=== PATIENT | female | born 1980 | race African-American/Black ===

== ENCOUNTER 2022-10-04 15:20 | Outpatient (REF) | payer OTHER, SELFPAY ==
[2022-10-13 09:44] LABS: HPV mRNA E6/E7 rflx Not Detected (Not Detected)
== END 2022-10-04 15:21 | disposition home or self-care (01) ==
LOC: HO.LNP 15:20
PROVIDERS: PCP Nurse Practitioner Family; Visit Provider Obstetrics & Gynecology
DX: Z01.419 Encounter for gynecological examination (general) (routine) without abnormal findings (principal)
CPT/HCPCS: 87624; 88142

== ENCOUNTER 2022-10-04 15:20 | Outpatient (AMB) | payer OTHER, SELFPAY ==
--- NOTE | 2022-10-04 15:28 | A.OFFVIS_ITS ---
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 No complaints. 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 Sexually active: Yes Sexual orientation: Straight/Heterosexual Gender identity: Female Female Reproductive History Menstrual Date of last menstrual period: 09/17/22 Total pregnancies: 4 Full term: 3 Number of Living Children: 3 Ab induced: 1 Review of Systems Const All systems reviewed & are unremarkable except as noted in HPI and below Card Reports as per HPI Resp Reports as per HPI GI Reports as per HPI and Reports no additional complaints Reports as per HPI Physical Exam Vital Signs: Last Vital Signs BP 110/70 10/04/22 15:30 BMI result Body Mass Index 34.9 Const General: cooperative, healthy appearing and comfortable Chest Chest palpation & inspection: normal inspection of the chest and normal palpation of entire chest wall Breast/axilla inspection: normal inspection of the breasts and normal inspection of the axillae Breast/axilla palpation: normal palpation of the breasts, normal palpation of the axillae and no axillary lymphadenopathy Resp Effort & Inspection: normal respiratory effort Auscultation: clear to auscultation bilaterally Percussion: percussion normal Cardio Palpation: normal PMI Rate: regular rate Rhythm: regular rhythm Heart sounds: no murmurs and no rubs Peripheral pulses: Peripheral pulses 2+ throughout GI Inspection: Yes normal to inspection Palpation (GI): Soft to palpation, nontender, no guarding, not rigid and No hepatosplenomegaly present Percussion: Yes normal to percussion Auscultation: normal bowel sounds Rectal Exam - Female: deferred General: Yes bladder normal to palpation External Female Exam: No lesion Speculum Exam - Vagina: normal appearance of the vagina, normal palpation, normal vaginal discharge and not erythematous Speculum Exam - Cervix: normal appearance of the cervix and normal palpation Bimanual exam- vagina & uterus: normal bimanual exam, normal palpation, uterine size normal, bladder normal to palpation, consistency normal and normal palpation Bimanual Exam- Adnexa, other: normal adnexae, no masses and no tenderness Assessment & Plan Assessment & Plan (1) Well woman exam: Code(s): Z01.419 - Encounter for gynecological examination (general) (routine) without abnormal findings Plan: Cotesting done. Mammogram ordered. Counseled the patient about the recommended dietary allowance of 1000 mg of Calcium & 600 IU of vitamin D. The patient was instructed to perform monthly self-breast exams and to schedule an annual exam in a year; All questions answered and the patient verbalized understanding. Instructed the patient to schedule annual exam in a year Coding Level of Care Code New Pt Prev Care 40-64y(93448) Diagnoses Well woman exam Z01.419
[2022-10-04 15:30] VITALS: BP 110/70; BMI 34.9
== END 2022-10-04 15:59 | disposition home or self-care (01) ==
LOC: HO.HWS 15:20
PROVIDERS: PCP Nurse Practitioner Family; Visit Provider Obstetrics & Gynecology
DX: Z01.419 Encounter for gynecological examination (general) (routine) without abnormal findings (principal)
CPT/HCPCS: 99386

== ENCOUNTER → 2022-10-30 12:45 | Outpatient (BNV) | payer OTHER, MEDICAID, SELFPAY | PROVIDERS: Visit Provider Radiology Diagnostic Radiology | DX: Z12.31 Encounter for screening mammogram for malignant neoplasm of breast (principal) | CPT/HCPCS: 77063; 77067 ==

== ENCOUNTER 2022-10-30 12:51 | Outpatient (REF) | payer OTHER, SELFPAY ==
--- NOTE | ~2022-10-30 | MM_ITS ---
EXAMINATION: MM SCREENING DIGITAL BREAST TOMOSYNTHESIS, BILATERAL CLINICAL INFORMATION: Screening. Asymptomatic. COMPARISON: Mammography: This is a baseline study. TECHNIQUE: Digital breast tomosynthesis is performed in both the craniocaudal and mediolateral oblique views along with computer-aided detection (CAD). Synthesized 2D images are generated from the tomosynthesis. FINDINGS: There are scattered areas of fibroglandular density (ACR BI-RADS breast composition Category b). There are no significant masses, abnormal calcifications, or other abnormalities. MM/MM tomosynthesis screening BI IMPRESSION: No mammographic evidence of malignancy. ASSESSMENT: BI-RADS BI-RADS 1 - Negative RECOMMENDATION: Routine annual mammography screening. 1 year F/U This examination should not preclude the clinical evaluation of a suspicious palpable abnormality. This patient's information was entered into a reminder system with a target due date for their next mammogram.
== END 2022-10-30 12:52 | disposition home or self-care (01) ==
LOC: HO.MAMMO 12:51
PROVIDERS: Visit Provider Obstetrics & Gynecology
DX: Z12.31 Encounter for screening mammogram for malignant neoplasm of breast (principal)
CPT/HCPCS: 77063; 77067

== ENCOUNTER → 2023-11-19 11:00 | Outpatient (BNV) | payer OTHER, SELFPAY | PROVIDERS: PCP Internal Medicine; Visit Provider Internal Medicine | DX: Z12.31 Encounter for screening mammogram for malignant neoplasm of breast (principal) | CPT/HCPCS: 77063; 77067 ==

== ENCOUNTER 2023-11-19 11:07 | Outpatient (REF) | payer OTHER, SELFPAY ==
--- NOTE | ~2023-11-19 | MM_ITS ---
EXAMINATION: MM SCREENING DIGITAL BREAST TOMOSYNTHESIS, BILATERAL CLINICAL INFORMATION: Screening. Asymptomatic. COMPARISON: Mammography: Comparison is made with available priors TECHNIQUE: Digital breast mammography with tomosynthesis is performed in both the craniocaudal and mediolateral oblique views along with computer-aided detection (CAD). FINDINGS: There are scattered areas of fibroglandular density (ACR BI-RADS breast composition Category b). There are no significant masses, abnormal calcifications, or other abnormalities. MM/MM tomosynthesis screening BI IMPRESSION: No mammographic evidence of malignancy. ASSESSMENT: BI-RADS BI-RADS 1 - Negative RECOMMENDATION: Routine annual mammography screening. 1 year F/U This examination should not preclude the clinical evaluation of a suspicious palpable abnormality. This patient's information was entered into a reminder system with a target due date for their next mammogram. Electronically signed by: Kenyetta Lazaro DO 12/02/2023 04:20 PM EDT
== END 2023-11-19 11:08 | disposition home or self-care (01) ==
LOC: HO.MAMMO 11:07
PROVIDERS: PCP Internal Medicine; Visit Provider Internal Medicine
DX: Z12.31 Encounter for screening mammogram for malignant neoplasm of breast (principal)
CPT/HCPCS: 77063; 77067

== ENCOUNTER 2024-02-19 09:17 | Outpatient (REF) | payer OTHER, SELFPAY ==
[2024-02-19 10:51] LABS: Hematocrit 27.5 % (37.0-47.0); Mean Corpuscular HGB Conc 36.4 g/dl (31.0-35.0); Mean Corpuscular Hemoglobin 39.5 pg (27.0-33.0); Mean Corpuscular Volume 108.7 fL (80.0-98.0); Mean Platelet Volume 10.6 fL (9.4-12.3); NRBC Pct Auto 0.4 /100WBC (0.0-0.2); Platelet Count 286 X10*3/uL (160-400); Red Blood Count 2.53 X10*6/uL (4.20-5.50); Red Cell Distribution Width 15.3 % (11.0-16.0)
[2024-02-19 11:42] LABS: HCG Quantitative < 2 mIU/mL; TSH reflex Free T4 1.59 uIU/mL (0.32-4.0)
[2024-02-19 18:33] LABS: CT PCR NOT DETECTED (Not Detect.); NG PCR NOT DETECTED (Not Detect.)
== END 2024-02-19 09:18 | disposition home or self-care (01) ==
LOC: HO.LNP 09:17
PROVIDERS: PCP Internal Medicine; Visit Provider Obstetrics & Gynecology
DX: Z01.419 Encounter for gynecological examination (general) (routine) without abnormal findings (principal); N93.9 Abnormal uterine and vaginal bleeding, unspecified
CPT/HCPCS: 84443; 84702; 85027; 87491; 87591

== ENCOUNTER 2024-02-19 09:17 | Outpatient (AMB) | payer OTHER, SELFPAY ==
--- NOTE | 2024-02-19 09:21 | A.OFFVIS_ITS ---
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 Sexual orientation: Straight/Heterosexual Gender identity: Female Female Reproductive History Menstrual Duration of menses: <3 days Date of last menstrual period: 01/06/24 Total pregnancies: 4 Full term: 3 Ab induced: 1 Date of last pap smear: 10/05/22 (negative pap smear, negative hpv) Date of Mammogram: 11/19/23 (bi rad 1) Review of Systems Const All systems reviewed & are unremarkable except as noted in HPI and below Card Reports as per HPI Resp Reports as per HPI GI Reports as per HPI and Reports no additional complaints Reports as per HPI Physical Exam Vital Signs: Last Vital Signs BP 126/74 02/19/24 09:25 BMI result Body Mass Index 32.9 Const General: cooperative, healthy appearing and comfortable Chest Chest palpation & inspection: normal inspection of the chest and normal palpation of entire chest wall Breast/axilla inspection: normal inspection of the breasts and normal inspection of the axillae Breast/axilla palpation: normal palpation of the breasts, normal palpation of the axillae and no axillary lymphadenopathy Resp Effort & Inspection: normal respiratory effort Auscultation: clear to auscultation bilaterally Percussion: percussion normal Cardio Palpation: normal PMI Rate: regular rate Rhythm: regular rhythm Heart sounds: no murmurs and no rubs Peripheral pulses: Peripheral pulses 2+ throughout GI Inspection: Yes normal to inspection Palpation (GI): Soft to palpation, nontender, no guarding, not rigid and No hepatosplenomegaly present Percussion: Yes normal to percussion Auscultation: normal bowel sounds Rectal Exam - Female: deferred General: Yes bladder normal to palpation External Female Exam: No lesion Speculum Exam - Vagina: normal appearance of the vagina, normal palpation, normal vaginal discharge and not erythematous Speculum Exam - Cervix: normal appearance of the cervix and normal palpation Bimanual exam- vagina & uterus: normal bimanual exam, normal palpation, uterine size normal, bladder normal to palpation, consistency normal and normal palpation Bimanual Exam- Adnexa, other: normal adnexae, no masses and no tenderness Assessment & Plan Assessment & Plan (1) Well woman exam: Code(s): Z01.419 - Encounter for gynecological examination (general) (routine) without abnormal findings Category: Medical Plan: Cotesting not indicated this year. Instructions given to patient to schedule next screening Mammogram in 11/26. Counseled the patient about the recommended dietary allowance of 1000 mg of Calcium & 600 IU of vitamin D. The patient was instructed to perform monthly self-breast exams and to schedule an annual exam in a year; All questions answered and the patient verbalized understanding. Instructed the patient to schedule annual exam in a year (2) Abnormal uterine bleeding: Code(s): N93.9 - Abnormal uterine and vaginal bleeding, unspecified Category: Medical Plan: GC and chlamydia taken CBC, TSH, HCG, and pelvic ultrasound ordered. Discussed with the patient the different causes of abnormal bleeding including thyroid disorders, uterine and ovarian pathology, endometrial hyperplasia, carcinoma and other potential causes. Discussed with the patient the work up including CBC (to r/o anemia), TSH, prolactin, pelvic Ultrasound, endometrial biopsy to r/o endometrial pathology. All questions answered and the patient verbalized understanding. Instructed the patient to schedule an appointment for an endometrial biopsy in 2 weeks. Orders: Orders Complete Blood Count no Diff Today N93.9 - Abnormal uterine and vaginal bleeding, unspecified TSH reflex Free T4 Today N93.9 - Abnormal uterine and vaginal bleeding, unspecified HCG Quantitative Today N93.9 - Abnormal uterine and vaginal bleeding, unspecified US pelvic and transvaginal Today N93.9 - Abnormal uterine and vaginal bleeding, unspecified Coding Level of Care Code Est Pt Level 3 (92011) Est Pt Prev Care 40-64y(71565) Diagnoses Well woman exam Z01.419 Abnormal uterine bleeding N93.9
[2024-02-19 09:25] VITALS: BP 126/74; BMI 32.9
== END 2024-02-19 09:46 | disposition home or self-care (01) ==
LOC: HO.HWS 09:17
PROVIDERS: PCP Internal Medicine; Visit Provider Obstetrics & Gynecology
DX: Z01.419 Encounter for gynecological examination (general) (routine) without abnormal findings (principal); N93.9 Abnormal uterine and vaginal bleeding, unspecified
CPT/HCPCS: 99213; 99396; 99459

== ENCOUNTER 2024-02-19 09:56 | Outpatient (REF) | payer OTHER, SELFPAY | END 2024-02-19 09:57 | disposition home or self-care (01) | LOC: HO.LAB 09:56 | PROVIDERS: PCP Internal Medicine; Visit Provider Obstetrics & Gynecology | DX: Z13.89 Encounter for screening for other disorder (principal) ==

== ENCOUNTER 2024-03-16 11:40 | Outpatient (REF) | payer OTHER, SELFPAY ==
--- NOTE | ~2024-03-16 | US_ITS ---
CLINICAL HISTORY: N93.9 - Abnormal uterine and vaginal bleeding, unspecified US pelvis transabdominal and transvaginal with color Doppler Comparison: None Findings: Transabdominal scanning performed for overall anatomy. Transvaginal scanning performed for additional detail. LMP: 03/01/2024 Anteverted uterus, normal size and echotexture, measuring 8.7 x 4.5 x 5.1 cm. Posterior fundal intramural fibroid measuring 1.3 x 0.8 x 1.0 cm. Well defined endometrium, measuring 3.0 mm in thickness. The right ovary measures, 2.5 x 1.4 x 2.5 cm. Normal sonographic appearance right ovary. Normal color Doppler right ovary. The left ovary measures, 2.3 x 1.7 x 1.7 cm. Normal sonographic appearance left ovary. Normal color Doppler left ovary. Incidental simple paraovarian cyst on the right measuring 1.0 x 1.3 x 1.1 cm. No free fluid Impression: 1. Uterus normal size and position with a posterior fundal intramural fibroid. 2. Normal thickness endometrium with normal trilaminar appearance. 3. Normal ovaries. Incidental paraovarian cysts on the right. This document has been electronically signed by: Paramjit Crawford MD on 03/17/2024 11:31:37
== END 2024-03-16 11:41 | disposition home or self-care (01) ==
LOC: HO.US 11:40
PROVIDERS: PCP Internal Medicine; Visit Provider Obstetrics & Gynecology
DX: N93.9 Abnormal uterine and vaginal bleeding, unspecified (principal)
CPT/HCPCS: 76830; 76856

== ENCOUNTER → 2024-03-16 11:42 | Outpatient (BNV) | payer OTHER, SELFPAY | PROVIDERS: PCP Internal Medicine; Visit Provider Radiology Diagnostic Radiology | DX: N93.9 Abnormal uterine and vaginal bleeding, unspecified (principal) | CPT/HCPCS: 76830; 76856 ==

== ENCOUNTER 2024-05-05 11:21 | Outpatient (AMB) | payer OTHER, SELFPAY ==
--- NOTE | 2024-05-05 11:22 | MHC.OFFVIS ---
Intake Visit Reasons: U/s results Allergies naproxen Allergy (Severe, Verified 02/19/24 09:22) Hives HPI Comments Details: The patient is presenting for follow-up to discuss the results of her abnormal uterine bleeding workup and options of treatment. The following workup was done.: H&H= 12/28.5 TSH, hCG, GC and chlamydia were negative. Co testing was done in 10/24 was negative. Mammogram was BI-RADS 1 in 11/25. Pelvic ultrasound showed the following: Anteverted uterus, normal size and echotexture, measuring 8.7 x 4.5 x 5.1 cm. Posterior fundal intramural fibroid measuring 1.3 x 0.8 x 1.0 cm. Well defined endometrium, measuring 3.0 mm in thickness. The right ovary measures, 2.5 x 1.4 x 2.5 cm. Normal sonographic appearance right ovary. Normal color Doppler right ovary. The left ovary measures, 2.3 x 1.7 x 1.7 cm. Normal sonographic appearance left ovary. Normal color Doppler left ovary. Incidental simple paraovarian cyst on the right measuring 1.0 x 1.3 x 1.1 cm. 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 Sexual orientation: Straight/Heterosexual Gender identity: Female Review of Systems Const All systems reviewed & are unremarkable except as noted in HPI and below Reports as per HPI and Reports no additional complaints GI Reports no additional complaints Reports no additional complaints Telehealth Telehealth Telehealth Platform: Telephone Location of provider rendering services: practice address Location of patient: address on file Patient Identification confirmed using: Name, : Yes Telehealth method: video Patient verbally consented to treatment: Yes Patient verbally consented to billing insurance company: Yes Patient informed of any privacy concerns related to visit: Yes Minutes spent on Phone/Video with Pt.: 5 Assessment & Plan Assessment & Plan (1) Abnormal uterine bleeding: Comment: Anemia Code(s): N93.9 - Abnormal uterine and vaginal bleeding, unspecified Category: Medical Plan: Iron sulfate 325 mg p.o. t.i.d.. Discussed with the patient the results of the workup done, recommended next step is schedule endometrial biopsy to rule out endometrial pathology including endometrial hyperplasia or malignancy. All questions answered, the patient verbalized understanding (2) Myoma: Code(s): D21.9 - Benign neoplasm of connective and other soft tissue, unspecified Category: Medical Plan: Discussed with the patient the findings on pelvic ultrasound & the risk of myosarcoma; in addition reviewed with the patient that malignancy and pre malignancy cannot be ruled out without hysterectomy for pathological evaluation ; furthermore, explained to the patient the limitation of pelvic ultrasound and endometrial biopsy in the setting. Discussed with the patient the typical symptoms that are caused by myomas including but not limited to pelvic pain, pressure symptoms, abnormal uterine bleeding. In addition discussed with the patient options of treatment for myomas including: Serial ultrasounds periodically to follow-up on the size of the myoma while targeting the treatment against fibroids related symptoms ( control pills, Mirena IUD, progesterone treatment, GnRH agonist/antagonist, uterine artery embolization or endometrial ablation) versus surgical treatment including hysterectomy and or myomectomy. All pros and cons, risks and benefits of all options were discussed with the patient. The patient understands that delay in surgical treatment in case of myosarcoma can affect her prognosis, after further discussion, the patient decided to think about it and get back to us next visit I spent a total of 20 minutes reviewing the chart, talking to the patient via video and documenting in the medical record. Coding Level of Care Code Est Pt Level 3 (20121) Diagnoses Abnormal uterine bleeding N93.9 Myoma D21.9
--- OUTSIDE RECORDS SUMMARY | 2024-05-05 14:16 | XMS_ITS | Data Portability ---
Author Organization [facility] UROLOGY Address [address] [place] [address] Assessment No assessment recorded. Plan of Treatment Reminders Order Date Submit Date Provider Last Modified By Organization Details Last Modified Time Details Appointments None recorded. Lab CMP, serum or plasma 2019 020 [email or web address] Not available 0 15:42:35 lipid panel, serum 2019 020 [email or web address] Not available 0 15:42:35 pap, IG + HPV mRNA E6/E7 2018 019 LANG Not available 9 12:42:04 TSH, serum or plasma 2018 020 nlandim Not available 0 09:43:50 CMP, serum or plasma 2018 020 nlandim Not available 0 09:43:50 lipid panel, serum 2018 020 nlandim Not available 0 09:43:50 CBC w/ auto diff 2018 020 nlandim Not available 0 09:43:50 Referral gynecologis t referral 2018 019 [email or web address] Ava CARVER, [address], [place], [address], 9 11:23:51 physical therapy neck referral 2018 019 [email or web address] [facility], [address], [place], [address], 9 15:20:27 Procedures None recorded. Surgeries None recorded. Imaging electrocard iogram 2019 020 [email or web address] In-House Order For [place] Provider, For Internal Use Only, [id number] 0 11:24:02 XR, cervical spine 2018 019 [email or web address] [facility], [address], [place], [address], 9 08:35:40 XR, thoracic spine 2018 019 LANG [facility], [address], [place], [address], 9 10:28:31 Medication Orders valacyclovi r 500 mg tablet 2018 019 [email or web address] Not available 9 13:27:39 prednisone 10 mg tablet 2018 019 [email or web address] Not available 9 13:27:36 amoxicillin 875 mg tablet 2017 018 [email or web address] Not available 9 09:19:13 Patient TargetsNo targets recorded. Patient Instructions Encounter Date Encounter Id Patient Instructions Last Modified By Organization Details Last Modified Time 01/28/2018 [id number] SOV: Upper respiratory infection with early sinusitis -- acute presentation Medication(s): amoxicillin 875 mg 1 tab twice a day x 10 days OTC Afrin nasal spray (oxymetazoline) 1-2 sprays in each nostril for NO MORE than 3 days Avoid OTC cold medications that contain 1st generation antihistamines (NyQuil, diphenhydramine (Benadryl)) Steam therapy (hot showers, hot soup, hot tea) Increase fluid intake Rest Return to urgent care or follow-up with your primary care provider if your current symptoms do not improve over the next few days. [email or web address] Not available 01/28/2018 17:48:04 05/07/2018 [id number] genital herpes: care instructions smaskey Not available 05/07/2018 09:42:33 healthy upper ba ck: exercises smaskey Not available 05/07/2018 09:42:33 Eating Right For A Healthy Weight smaskey Not available 05/07/2018 11:47:15 06/12/2018 [id number] heart murmur: ca re instructions smaskey Not available 06/12/2018 14:02:18 seasonal allergi es: care instructions smaskey Not available 06/12/2018 13:58:25 09/23/2018 [id number] ~Return in one y ear for annual screening; sooner if problems. Reminder to be sent when it is time to schedule your next physical. ~Importance of diet and exercise discussed. ~Patient instructed to increase her level of exercise ~SBE taught/reviewed ~Counseled multivitamins, exercise, calcium and Vitamin D for osteoporosis prevention vit d 1k daily ~ACOG guidelines for paps (30-39) Option 1- Every 3 years after 3 consecutive negative screens with no history of KALPESH II/III, immunosuppression, HIV, FAIZA in utero Option 2-Screen every 3 years after negative pap/HPV mirena and ok with it ~STD discussed ~Domestic violence and abuse/neglect counseling offered artie Not available 09/23/2018 11:54:15 I was not presen t during the examination. I reviewed chart and agree w/ the plan of care. Karina Celaya D.O. 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 malignant neoplasm of cervix Referring Physician: [facility], Encounter Date: 06/12/2018 Results Created Date Observation Date Name Description Value Unit Range Abnormal Flag Note LastModifiedBy Organization Detail LastModifiedTime 10/21/19 20 10/21/2019 sahil singh am EKG Result NSR, NO ST change s Not Available In-House Order For [place] Provider For Internal Use Only, [id number] 10/21/2019 11:22:36 09/03/1909/02/2018 CBC w/ auto diff WBC 3.9 10^3_ cells /uL 4.8-11 .2 low Not Available [facility] [address] , [place], [address], 09/02/2018 13:29:16 09/03/1909/02/2018 CBC w/ auto diff RBC 4.1 10^6_ cells /uL 3.6-5. 4 Not Available [facility] [address] , [place], [address], 09/02/2018 13:29:16 09/03/1909/02/2018 CBC w/ auto diff HGB 13.8 g/dL 12.0-1 5.8 Not Available [facility] [address] , [place], [address], 09/02/2018 13:29:16 09/03/1909/02/2018 CBC w/ auto diff HCT 39.8 % 36.0-4 8.0 Not Available [facility] [address] , [place], [address], 09/02/2018 13:29:16 09/03/1909/02/2018 CBC w/ auto diff MCV 98.3 fL 82.0-9 8.0 high Not Available [facility] [address] , [place], [address], 09/02/2018 13:29:16 09/03/1909/02/2018 CBC w/ auto diff MCH 34.1 pg 27.0-3 5.0 Not Available [facility] [address] , [place], [address], 09/02/2018 13:29:16 09/03/19 19 09/02/2018 CBC w/ auto diff MCHC 34.7 % 32.0-3 7.0 Not Available [facility] [address] , [place], [address], 09/02/2018 13:29:16 09/03/19 19 09/02/2018 CBC w/ auto diff RDW-CV 13.5 % 9.0-17 .9 Not Available [facility] [address] [facility], [place], [address], 09/02/2018 13:29:16 09/03/19 19 09/02/2018 CBC w/ auto diff MPV 11.30 fL 7.00-1 4.00 Not Available [facility] [address] [facility], [place], [address], 09/02/2018 13:29:16 09/03/19 19 09/02/2018 CBC w/ auto diff plt 225 10^3_ cells /uL 150-40 0 Not Available [facility] [address] [facility], [place], [address], 09/02/2018 13:29:16 09/03/19 19 09/02/2018 CBC w/ auto diff ne% 60.6 % 40.0-8 5.0 Not Available [facility] [address] , [place], [address], 09/02/2018 13:29:16 09/03/1909/02/2018 CBC w/ auto diff ly% 28.8 % 15.0-4 5.0 Not Available [facility] [address] [facility], [place], [address], 09/02/2018 13:29:16 09/03/19 19 09/02/2018 CBC w/ auto diff MO% 7.7 % 0.0-12 .0 Not Available [facility] [address] [facility], [place], [address], 09/02/2018 13:29:16 09/03/19 19 09/02/2018 CBC w/ auto diff eo% 2.1 % 0.0-7. 0 Not Available [facility] [address] [facility], [place], [address], 09/02/2018 13:29:16 09/03/19 19 09/02/2018 CBC w/ auto diff ba% 0.5 % 0.0-3. 0 Not Available [facility] [address] [facility], [place], [address], 09/02/2018 13:29:16 09/03/19 19 09/02/2018 CBC w/ auto diff Ig% 0.3 % 0.0-0. 5 Not Available [facility] [address] [facility], [place], [address], 09/02/2018 13:29:16 09/03/19 19 09/02/2018 CBC w/ auto diff ne# 2.4 10^3_ cells /uL 1.2-8. 5 Not Available [facility] [address] [facility], [place], [address], 09/02/2018 13:29:16 09/03/19 19 09/02/2018 CBC w/ auto diff ly# 1.1 10^3_ cells /uL 1.0-4. 5 Not Available [facility] [address] [facility], [place], [address], 09/02/2018 13:29:16 09/03/19 19 09/02/2018 CBC w/ auto diff MO# 0.3 10^3_ cells /uL 0.0-1. 0 Not Available [facility] [address] [facility], [place], [address], 09/02/2018 13:29:16 09/03/19 19 09/02/2018 CBC w/ auto diff eo# 0.1 10^3_ cells /uL 0.0-0. 5 Not Available [facility] [address] , [place], [address], 09/02/2018 13:29:16 09/03/1909/02/2018 CBC w/ auto diff ba# 0.0 10^3_ cells /uL 0.0-0. 2 Not Available [facility] [address] , [place], [address], 09/02/2018 13:29:16 09/03/1909/02/2018 CBC w/ auto diff Ig# 0.0 10^3_ cells /uL Not Available [facility] [address] [facility], [place], [address], 09/02/2018 13:29:16 09/03/1909/02/2018 TSH, serum or plasm a TSH 1.42 IU/L 0.45-5 .33 Not Available [facility] [address] [facility], [place], [address], 09/02/2018 15:05:22 09/03/1909/02/2018 CMP, serum or plasm a gluc. 95 mg/dL 74-118 Not Available [facility], [place], [address], 09/02/2018 15:20:13 09/03/1909/02/2018 CMP, serum or plasm a BUN. 8 mg/dL 6-25 Not Available [facility], [place], [address], 09/02/2018 15:20:13 09/03/19 19 09/02/2018 CMP, serum or plasm a crea. 0.81 mg/dL 0.50-1 .20 Not Available [facility] [address] , [place], [address], 09/02/2018 15:20:13 09/03/1909/02/2018 CMP, serum or plasm a B/C ratio. 10 ratio 7-25 Not Available [facility], [place], [address], 09/02/2018 15:20:13 09/03/1909/02/2018 CMP, serum or plasm a Na. 140 mmol/ L 135-14 5 Not Available [place] [address] [facility], [place], [address], 09/02/2018 15:20:13 09/03/1909/02/2018 CMP, serum or plasm a K. 4.3 mmol/ L 3.5-5. 1 Not Available [place] [address] [facility], [place], [address], 09/02/2018 15:20:13 09/03/1909/02/2018 CMP, serum or plasm a cL 104.00 mmol/ L 98.00- 110.00 Not Available [place] [address] [facility], [place], [address], 09/02/2018 15:20:13 09/03/1909/02/2018 CMP, serum or plasm a CO2. 26 mmol/ L 22-32 Not Available [facility], [place], [address], 09/02/2018 15:20:13 09/03/1909/02/2018 CMP, serum or plasm a anion gap 10 mmol/ L 3-12 Not Available [place] [address] [facility], [place], [address], 09/02/2018 15:20:13 09/03/1909/02/2018 CMP, serum or plasm a Ca. 9.7 mg/dL 8.6-10 .3 Not Available [facility] [address] [place] [address], [place], [address], 09/02/2018 15:20:13 09/03/1909/02/2018 CMP, serum or plasm a TP. 7.4 g/dL 6.4-8. 9 Not Available [facility] [address] [place] [address], [place], [address], 09/02/2018 15:20:13 09/03/1909/02/2018 CMP, serum or plasm a alb. 4.5 g/dL 3.5-5. 7 Not Available [facility] [address] [place] [address], [place], [address], 09/02/2018 15:20:13 09/03/1909/02/2018 CMP, serum or plasm a A/G ratio. 1.5 ratio 1.1-1. 8 Not Available [facility] [address] [place] [address], [place], [address], 09/02/2018 15:20:13 09/03/1909/02/2018 CMP, serum or plasm a ALP. 47 IU/L 34-104 Not Available [facility] [address] [place] [address], [place], [address], 09/02/2018 15:20:13 09/03/1909/02/2018 CMP, serum or plasm a ALT. 16 IU/L 7-52 Not Available [facility] [address] [place] [address], [place], [address], 09/02/2018 15:20:13 09/03/1909/02/2018 CMP, serum or plasm a AST. 24 IU/L 13-39 Not Available [facility] [address] [place] [address], [place], [address], 09/02/2018 15:20:13 09/03/19 19 09/02/2018 CMP, serum or plasm a tbil. 0.7 mg/dL 0.2-1. 2 Not Available [facility] [address], [place], [address], 09/02/2018 15:20:13 09/03/19 19 09/02/2018 CMP, serum or plasm a eGFR >60 mL/mi n/1.7 3_m^2 >60 mL/min /1.73 M^2 IF PATIE NT IS AFRIC AN-AM RAMY N, MULTI PLY eGFR REPOR JES RESUL T by 1.21 Not Available [facility] [address], [place], [address], 09/02/2018 15:20:13 09/03/19 19 09/02/2018 lipid panel , serum chol 174 mg/dL <200 Not Available [facility] [address] [facility] [address], [place], [address], 09/02/2018 15:20:24 09/03/1909/02/2018 lipid panel , serum trig. 294 mg/dL <150 high Not Available [facility] [address] [facility], [place], [address], 09/02/2018 15:20:24 09/03/1909/02/2018 lipid panel , serum DHDL 74 mg/dL >40 Not Available [facility] [address] [facility] [address], [place], [address], 09/02/2018 15:20:24 09/03/1909/02/2018 lipid panel , serum LDL chol 41 mg/dL (calc .) <100 Not Available [facility] [address] [facility], [place], [address], 09/02/2018 15:20:24 09/03/19 19 09/02/2018 lipid panel , serum chol/ HDL ratio 2.4 ratio 0.0-5. 0 Not Available [facility] [address] , [place], [address], 09/02/2018 15:20:24 09/24/19 19 09/23/2018 pap, IG + HPV mRNA E6/E7 clinical information: SCREEN ING Not Available [facility], [place], [address], 09/25/2018 12:42:04 09/24/19 19 09/23/2018 pap, IG + HPV mRNA E6/E7 LMP: 2018 Not Available [facility] [address] [place] [address], [place], [address], 09/25/2018 12:42:04 09/24/19 19 09/23/2018 pap, IG + HPV mRNA E6/E7 prev. Pap: 2017 Not Available Tamy figueroa [facility] [address] [place] [address], [place], [address], 09/25/2018 12:42:04 09/24/19 19 09/23/2018 pap, IG + HPV mRNA E6/E7 prev. BX: NONE Not Available [address], [place], [address], 09/25/2018 12:42:04 09/24/19 19 09/23/2018 pap, IG + HPV mRNA E6/E7 source: Cervix , Endoce rvix Not Available [facility] [address] [place] [address], [place], [address], 09/25/2018 12:42:04 09/24/19 19 09/23/2018 pap, IG + HPV mRNA E6/E7 statement of adequacy: Satisf actory for evalua tion. Endoce rvical /trans format ion zone compon ent gina t. Not Available [facility] [address] [facility], [place], [address], 09/25/2018 12:42:04 09/24/19 19 09/23/2018 pap, IG + HPV mRNA E6/E7 interpretati on/result: Negati ve for intrae pithel ial lesion or malign pascale. Not Available [facility] [address] [facility], [place], [address], 09/25/2018 12:42:04 09/24/19 19 09/23/2018 pap, IG + HPV mRNA E6/E7 comment: This Pap test has been evalua jse with comput er assist ed techno logy. Not Available [facility] [address] [facility], [place], [address], 09/25/2018 12:42:04 09/24/19 19 09/23/2018 pap, IG + HPV mRNA E6/E7 cytotechnolo gist: SEE NOTE GSG, CT( CP) CT scree ryan locat ion: [facility] [address], [place] [id number] Not Available [facility] [address] [place] [address], [place], [address], 09/25/2018 12:42:04 09/24/19 19 09/23/2018 pap, IG + HPV mRNA E6/E7 comment SEE NOTE EXPLA NATOR Y NOTE: The Pap is a scree ryan test for cervi fareed cance r. It is not a diagn ostic test and is subje ct to false negat shant and false posit shant resul ts. It is most relia ble when a satis facto ry sampl e, regul mayo obtai justine, is submi tted with relev ant clini fareed findi ngs and histo ry, and when the Pap resul t is evalu ated along with histo matt and curre nt clini fareed infor matio n. Not Available [address], [place], [address], 09/25/2018 12:42:04 09/24/19 19 09/23/2018 pap, IG + HPV mRNA E6/E7 HPV MRNA E6/E7 Not Detect ed not detect ed This test was perfo rmed using the APTIM A HPV Assay ([employer] . This assay detec ts E6/E7 viral messe nger RNA (mRNA ) from 14 high- risk HPV types (16,1 8,31, 33,35 ,39,4 5,51, 52,56 ,58,5 9,66, 68). The camila tical perfo rmanc e kuldip cteri stics of this assay have been deter mined by [facility]. The modif icati ons have not been clear ed or appro tobi by the FDA. This assay has been valid ated pursu ant to the CLIA regul ation s and is used for clini fareed purpo ses. Not Available [facility] [address] , [place], [address], 09/25/2018 12:42:04 05/08/19 19 05/07/2018 XR, cervi fareed spine , 4 or 5 view Page 1 of 1 [facility] [address] [place] [address] MD Shira Gomez t Name: NICOLE AKINS [address] : 1980 [place] [address] Chart No: [id number] Gender : Female Access ion #: [id number] Study Date: Primar y CPT Code: Study Descri ption: 27934 XR CERV SP 4V Histor y: Neck pain. Cervic al spine, five views: Verteb ral alignm ent is normal . There is mild loss of disc height at C4-5. Disc spaces are otherw ise preser tobi. The facets are intact . Obliqu e views show no bony forami nal narrow ing. Prever tebral soft tissue s are normal in calibe r. 05/08/19 19 10:25 AM PS/ CC: Electr onical ly approv ed by: Yoly Keyes Indica tions/ Chief Compla int: Neck painMa skomer miranda [facility] [address], [place], [address], 06/12/2018 13:53:07 05/08/19 19 05/07/2018 XR, thora cic spine Page 1 of 1 [facility] [address] [place] [address] Merrick Maciel MD Patien t Name: NICOLE AKINS [address] : 1980 [place] [address] Chart No: [id number] Gender : Female Access ion #: [id number] Study Date: Primar y CPT Code: Study Descri ption: 10369 XR TSPINE 2V Histor y: Thorac ic back pain. Thorac ic spine, two views: There is slight leftwa rd curvat ure of the mid to lower thorac ic spine. Alignm ent is otherw ise normal . There are no compre ssion deform ities. No signif icant disc space narrow ing. 05/08/19 19 10:26 AM PS/ CC: Electr onical ly approv ed by: Yoly Keyes Indica tions/ Chief Compla int: Thorac ic back painMa maggie miranda [facility] [address] [facility], [place], [address], 06/12/2018 13:53:07 10/22/19 20 10/21/2019 elect arnoldo diogr am No observ ation record ed. [email or web address] In-House Order For Katelyn Provider For Internal Use Only, [id number] 10/23/2019 15:11:40 Result Notes None recorded. Problems Name Problem SNOMED Code Status Onset Date Resolution Date Notes Provider Name and Address Organization Details Recorded Time No current problems or disability 828118887 Active Kristal morales [facility] 7 11:26:41 Hyperlipidemia 53045588 Active 2019 Merrick Maciel MD [address] [place], [address], [facility] 0 11:22:25 Problem Notes None recorded. Procedures Surgical History Date Name Laterality Status Provider Name and Address Organization Details Recorded Time 7 no previous surgery completed Kristalfede Albrecht [facility] 02/07/2017 10:22:40 Imaging Results Imaging Date Name Status LastModified by Organization Details LastModified Time 05/07/2018 XR, cervical spine, 4 or 5 view completed ruth [place] [facility] [address] [facility] [address], [place], [address], 06/12/2018 13:53:07 05/07/2018 XR, thoracic spine completed ruth Lott rn [facility] [address] [facility], [place], [address], 06/12/2018 13:53:07 10/21/2019 electrocardiogram completed [email or web address] In-Hous e Order For Katelyn Provider For Internal Use Only, [id number] 10/23/2019 15:11:40 Procedure Notes None recorded. Medical Equipment None Reported. Allergies Allergen ID Allergen Name Allergen Category Reaction Reaction Severity Criticality Documentation Date Start Date Code Code System Note Provider Name and Address Organization Details Recorded Time 211501 naproxen medicatio n hives Not available Not available 02/07/2017 7258 RxNorm Kristal Albrecht [facility] 7 10:32:06 Medications Name Sig Start Date Stop Date Status Note LastModified by Organization Details LastModified Time prednisone 10 mg tablet 2 tabs by mouth twice a day for 2 days, then 1 1/2 tabs by mouth twice a day for 2 days, then 1 tab by mouth twice a day for 2 days, then 1/2 tab by mouth twice a day for 2 days then stop 06/12 completed Not Available Not Available Not Available valacyclovir 500 mg tablet Take 1 tablet twice a day by oral route for 3 days. 2019 active Not Available Not Available Not Avai lable amoxicillin 875 mg tablet Take 1 tablet every 12 hours by oral route for 10 days. 05/07 completed Not Available Not Available Not Available Vitals Date Recorded Body height Body mass index (BMI) Body weight Heart rate Oxygen saturation Oxygen saturation in Arterial blood by Pulse oximetry Respiratory rate Body temperature Systolic blood pressure Diastolic blood pressure Provider Name and Address Organization Details Last Updated DateTime 8 156.21 cm 29.7 kg/m2 44467.7 8 g 80 /min 98 % 98 % 16 /min 98.8 [degF] 116 mm[Hg] 72 mm[Hg] Scarlett Alasros [facility] 8 17:36:32 Date Recorded Body height Body mass index (BMI) Body weight Heart rate Oxygen saturation Oxygen saturation in Arterial blood by Pulse oximetry Systolic blood pressure Diastolic blood pressure Provider Name and Address Organization Details Last Updated DateTime 9 156.21 cm 29.2 kg/m2 91346 g 80 /min 99 % 99 % 122 mm[Hg] 68 mm[Hg] Kristal Albrecht [facility] 9 09:20:40 Date Recorded Body height Body mass index (BMI) Body weight Heart rate Systolic blood pressure Diastolic blood pressure Provider Name and Address Organization Details Last Updated DateTime 9 156.21 cm 29.6 kg/m2 39375.1 9 g 72 /min 120 mm[Hg] 84 mm[Hg] Brianavanessa Thrasher [facility] 9 13:32:43 Date Recorded Body height Body mass index (BMI) Body weight Systolic blood pressure Diastolic blood pressure Provider Name and Address Organization Details Last Updated DateTime 09/23/2018 156.21 cm 27.9 kg/m2 32325.86 g 97 mm[Hg] 78 mm[Hg] Marsha Simonsarmand [facility] 9 10:44:54 Date Recorded Body height Body mass index (BMI) Body weight Heart rate Oxygen saturation Oxygen saturation in Arterial blood by Pulse oximetry Systolic blood pressure Diastolic blood pressure Provider Name and Address Organization Details Last Updated DateTime 0 156.21 cm 33.8 kg/m2 51741.8 1 g 79 /min 98 % 98 % 112 mm[Hg] 74 mm[Hg] Kristal Albrecht [facility] 0 10:33:34 Social History Question Answer Notes LastModified by Organizat ion Details LastModified Time Tobacco Smoking Status Never [facility]oker [facility] 11/29/2016 11:29:31 What Is Your Level Of Alcohol Consumption? Occasional Information not available 11/29/2016 Auto Related Injury? No Information not available 11/29/2016 What Is Your Level Of Caffeine Consumption? Occasional Information not available 11/29/2016 What Type Of Diet Are You Following? REGULAR Information not available 11/29/2016 Which Illicit Or Recreational Drugs Have You Used? Denies Information not available 11/29/2016 Do You Or Have You Ever Used E-cigarettes Or Vape? 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 Yes Information not available 02/07/2017 Live Alone Or With Others? With Others [email or web address] Information not available 09/23/2018 CO Detectors In Home? Yes Information not available 11/29/2016 Marital Status Informatio n not available 11/29/2016 What Was The Date Of Your Most Recent Tobacco Screening? 09/23/2018 Information not available 09/24/2018 How Many Children Do You Have? 3 Information not available 11/29/2016 Do You Use Your Seat Belt Or Car Seat Routinely? Yes Information not available 11/29/2016 Are You Sexually Active? Yes Information not available 11/29/2016 Smoke Alarm In Home Yes Information not available 11/29/2016 Do You Or Have You Ever Used Smokeless Tobacco? Never Used Smokeless Tobacco Information not available 10/21/2019 How Much Tobacco Do You Smoke? No Information not available 10/21/2019 Do You Use Sunscreen Routinely? Yes Information not available 02/07/2017 Work Related Injury? No Information not available 11/29/2016 Sex: Unknown Functional Status Question Answer Note LastModified by Organization D etails LastModified Time What is your exercise level? Moderate Information not available 11/29/2016 Mental Status None recorded. Family History Relationship Description Onset Age of this Age Resolved Age Notes LastModified by Organization Details LastModified Time Father Hypertensive disorder unknow n age onset [email or web address] Not available 06/12/2018 13:29:31 Father Myocardial infarction 70 [email or web address] Not available 06/12 13:29:44 Mother Blood coagulation disorder [email or web address] Not available 2018 13:31:05 Medical History No medical history recorded. Gynecological History Statement/Question Response Menses Monthly N Current Control Mirena Date of Last Pap 09/23/2018 Flow Light Current Control Method IUD Date of LMP 09/21/2018 Sexually Active? Y Obstetrics History GPAL:G 3 P 3 0 0 3 Type Value Full Term 3 Living 3 Total 3 Immunizations Vaccine Type Date Status Note Provider Nam e and Address Organization Details Recorded Time Influenza, MDCK, quadrivalent, PF 02/07/2017 completed Not [facility] Past Encounters Encounter ID Performer Location Encounter Start Date Encounter Closed Date Diagnosis/Indication Diagnosis SNOMED-CT Code Diagnosis ICD10 Code Diagnosis Note [id number] Merrick Maciel MD [address] [place] [address] 11/29/2016 10:58:29 11/29/2016 12:16:31 Hand pain 45690736 M79.642 Patient is reluctant to do X ray . Patient pain is most likely sprain Motrin PRN Exercise-i nduced asthma 75829239 J45.990 COnt same RX Heart murmur 57761751 R0 1.1 Stable Asymtomati c nick review the Echo [id number] Merrick Maciel MD [place] [address] [facility] [address] [place] [address] 02/07/2017 09:55:40 02/07/2017 14:26:00 Influenza vaccine needed 9440945895 106 Z23 Adult heal th examination 813129417 Z00.00 Z00.01 Heart murmur 69858293 R0 1.1 Stable Asymtomati c nick review the Echo Hand pain 23797208 M79.6 42 X ray done which was normal if persistent then t/c hand Motrin PRN [id number] MD [facility] [address] [place] [address] 07/08/2017 12:23:14 07/08/2017 14:46:34 Upper abdominal pain 15937256 R10.10 [id number] MD VARSHA [facility] [address] [place] [address] 01/28/2018 17:04:28 01/28/2018 17:48:47 Upper respiratory infection 97881202 J06.9 Sinusitis 92391251 J32.9 [id number] Merrick Maciel MD [place] [address] [facility] [address] [place] [address] 05/07/2018 09:06:56 05/07/2018 09:56:28 Body mass index 25-29 - overweight 374948020 Z68.29 Neck pain 99565108 M54.2 Patietn neck pain is most likely Sprain or Spondylosi swill do work upwill give short course of Predwill start PT Thoracic back pain 11432 8004 M54.6 will do work up Genital he rpes simplex 32864743 A60.9 Due to h/o Genital herpes in the past will rx Valtrex PRN during outbreaks [id number] Merrick Maciel MD [place] [address] [facility] [address] [place] [address] 06/12/2018 13:23:47 06/12/2018 14:11:28 Adult health examination 848918953 Z00.00 Z00.01 Screening for malignant neoplasm of cervix 293683056 Z12.4 Seasonal a llergic rhinitis 481809470 J30.2 Patietn is reluctant to see credit risk specialist Neck pain 32974551 M54.2 resolved Heart murmur 57415447 R0 1.1 Stable Asymtomati c will do Echo 2019 [id number] Karina Celaya DO [place] [address] [facility] [address] [address] 09/23/2018 10:32:47 09/23/2018 12:00:25 Gynecologic examination 68068273 Z01.419 1 yr annual Screening for malignant neoplasm of cervix 813398791 Z12.4 pap fu 1 yr Body mass index 25-29 - overweight 272024607 Z68.27 wt loss Depression screening 171 768124 Z13.31 Depression screening reviewed with pt [id number] Merrick Maciel MD [place] [address] [facility] [address] [place] [address] 10/21/2019 10:02:25 10/21/2019 11:24:01 Adult health examination 473422297 Z00.00 Hyperlipidemia 62265314 E78.5 Stablelow fat diet and exercise discussed Discussed the risk of high cholestero l which includes heart attack ,stroke and even Body mass index 30+ - obesity 557214906 Z68.33 Diet and exercise discussedI Deal body weight disucssed and goal is to 10% of weight loss in 4-6 monthsLow carb, low fat and food rich in [place] 3 fatty acid discussed . Portion control and small frequent meals through the day encourage Health Concerns Section Related Observation LastModified by Organization Detai ls LastModified Time None Recorded Concern Status LastModified by Organization Details LastModified Time None Recorded Advance Directives Directive None Recorded Payers Encounter Date Sequence Insurance Name Policy Number Policy Davis Covered Member ID Davis Member ID Guarantor Name 05/07/2018 1 [facility] (EPO) [id number] Nicole Akins [id number] Nicole Akins 06/12/2018 1 [facility] (POS) [id number] Nicole Akins [id number] Nicole Akins 09/23/2018 1 [facility] (POS) [id number] Nicole Akins [id number] Nicole Akins 10/21/2019 1 [facility] (POS) [id number] Nicole Akins [id number] Nicole Akins Notes Date Note Type Note Provider Name and Address Organization Details Recorded Time 01/28/2018 text/html The patient is a 37 year old woman who presents to Urgent Care complaining of worsening sinus pressure and congestion with associated headaches for the past 3 days despite using OTC decongestants. She denies any associated fevers, chills, or appreciable cough. She denies any purulent nasal discharge. She has had a history of recurrent sinusitis in the past and she states that it usually progresses from this point onwards. LMP: about 10 days ago Past medical history: []CAD []HTN [n]DM []asthma Family history: Social history: [x]non-smoker []former smoker []smoker ___ ppd Isac Zhu MD [address] [place] [address], [phone], [facility] 01/28/2018 17:48:38 05/07/2018 text/html Musculoskeletal PainReported bypatient.Location:pa in is not radiating; bilateral neck Quality:throbbing Severity:same; pain level with meds 8/10;interference with sleep;interference with work Duration:present <1 month; 3-4 weeks Context:overuse Aggravating factors:movement/posi tioning; bending over; twisting Associated Symptoms:no fever; no weak limbs; no tingling; no numbness of the legs/feet; on incontinence ADL (Activities of Daily Living)improve with medication Merrick Maciel MD [address] [place] [address], [phone], [facility] 05/07/2018 12:38:17 06/12/2018 text/html Annual Wellness Visit Production Generalist 18-64 yearsReported bypatient.Diet and Nutrition:healthy diet Physical Activity:exercises on a regular basis; recent increase in physical activity; good physical condition Depression Risk:never feels sad, empty, or tearful; no loss of interest in activities; no significant changes in weight; no sleep disturbances or insomnia; no agitation; no loss of energy; no feelings of worthlessness or guilt; no thoughts of suicide; no history of depression; no history of mood disorders Hearing:no loss of hearing Vision:no vision problems Home Safety:no unsafe gerald hazzards; no unsafe stairs; no unsafe gas appliances; working smoke/CO detectors; wears protective head gear for biking/high velocity; use of seatbelts; practicing 'safer sex'; no vision or hearing loss while driving; no fire arms; has hand bars in the bathroom/shower; good lighting in the home Merrick Maciel MD [address] [place], [address], [facility] 06/12/2018 17:09:50 09/23/2018 text/html 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 She has no complaints. Menses are regular. She denies any vaginal discharge, vulvar itching, abnormal bleeding or urinary symptoms. Her method of control is Mirena IUD. She denies STD concerns . ok iwth mirena light menses monthly no problems Karina Celaya DO [address] [place] [address], [phone], [facility] 09/23/2018 13:13:26 10/21/2019 text/html Patient is here for PE. No complaints today Merrick Maciel MD [address] [place], [address], [facility] 10/21/2019 12:35:38 OBGyn Episode No OBEpisode recorded.
== END 2024-05-05 11:59 | disposition home or self-care (01) ==
LOC: HO.HWS 11:21
PROVIDERS: PCP Internal Medicine; Visit Provider Obstetrics & Gynecology
DX: N93.9 Abnormal uterine and vaginal bleeding, unspecified (principal); D21.9 Benign neoplasm of connective and other soft tissue, unspecified
CPT/HCPCS: 99213

== ENCOUNTER → 2024-05-05 11:21 | Outpatient (BNVA) | payer OTHER, SELFPAY | PROVIDERS: PCP Internal Medicine; Visit Provider Obstetrics & Gynecology ==

== ENCOUNTER 2024-05-19 15:48 | Outpatient (AMB) | payer OTHER, SELFPAY ==
--- NOTE | 2024-05-19 15:55 | A.OFFPC_ITS ---
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 Required: No Accompanied by: Child Allergies naproxen Allergy (Severe, Verified 05/19/24 16:09) Hives Medication List - Last Reconciled 05/19/24 by Eloisa Patel MD No Known Home Meds Tobacco use date assessed: 05/19/24 Dental Screening Dental Screen Date: 05/19/24 Did you have a dental visit in the last 12 months?: Yes Did you have a dental problem in the last 6 months where you did not have access to dental care?: No Was dental information given to patient?: Patient has dentist HPI HPI Comments History of Present Illness Details The patient is a 43-year-old female presenting for a wellness examination. She has chronic iron deficiency anemia, reporting long-standing low iron levels and a reluctance to take iron supplements due to gastrointestinal discomfort. Recently, an elevated MCV of 108 was noted, suggesting a potential vitamin B12 deficiency, which will be further evaluated with testing. Family history is significant for controlled diabetes in her mother and hypertension in her father. She has a slight, asymptomatic congenital heart murmur. Her lifestyle includes regular exercise, which she engages in three to four times weekly at the gym. She had a recent irregular menstrual cycle, leading to an investigation by her OB, including a uterine ultrasound that returned normal results. The patient is considering the placement of an IUD for control. - Tdap vaccine is due, approximately 10 years after her last during . - Recent Pap smear performed in 2022 and mammogram in November 2022. - Baseline fasting blood work has been r ecommended, including cholesterol, triglycerides, sugar, kidney, liver panel, hemoglobin, iron, and vitamin B12 levels. 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 1. Little interest or pleasure in doing things: not at all 2. Feeling down, depressed, or hopeless: not at all 3. Trouble falling or staying asleep, or sleeping too much: not at all 4. Feeling tired or having little energy: not at all 5. Poor appetite or overeating: not at all 6. Feeling bad about yourself - or that you are a failure or have let yourself or your family down: not at all 7. Trouble concentrating on things, such as reading the newspaper or watching television: not at all 8. Moving or speaking so slowly that other people could have noticed. Or the opposite - being so fidgety or restless that you have been moving around a lot more than usual: not at all 9. Thoughts that you would be better off or of hurting yourself in some way: not at all Total score: 0 Depression Screening Interpretation: Negative Depression Screening Done: Yes 90104 - PHQ-9 Billing: Yes Source: Developed by Drs. Ruddy Snow, Matilde Hodgson, Lex Gonsales and colleagues, with an educational frank from [employer]. Thrive Questionnaire Date Thrive assessed: 05/19/24 I am a: Patient What is your living situation today?: I have a steady place to live Within the past 12 months, did the food you bought not last and you didn't have the money to get more?: Never true Within the past 12 months, did you worry whether your food would run out before you got money to buy more?: Never true Do you have trouble paying for medicines?: No Do you have trouble getting transportation to medical appointments?: No Do you have trouble paying your heating and electricity bill?: No Do you have trouble taking care of your child, family member or friend?: No Do you have trouble with day-to-day activities such as bathing, preparing meals, shopping, managing finances, etc.?: No Are you currently unemployed and looking for a job?: No Are you interested in more education?: No Please select the resources that you would like help with: None Currently or been in a relationship where the following occur: No concerns reported THRIVE Score: 0 AUDIT C Alcohol Use Questionnaire (AUDIT-C) 1. How often do you have a drink containing alcohol?: 2-3 times a week 2. How many drinks containing alcohol do you have on a typical day when you are drinking?: 1 or 2 3. How often do you have six or more drinks on one occasion?: Never Total Score: 3 KEYONNA-7 AMB Questionnaire KEYONNA-7 Date KEYONNA - 7 assessed: 05/19/24 Feeling nervous, anxious, or on edge: 0 = Not at all Not being able to stop or control worryin = Not at all Worrying too much about different things: 0 = Not at all Trouble relaxin = Not at all Being so restless that it is hard to sit still: 0 = Not at all Becoming easily annoyed or irritable: 0 = Not at all Feeling afraid as if something awful might happen: 0 = Not at all Total KEYONNA-7 score (0-4 normal; 5-9 mild; 10-14 moderate; 15-21 severe): 0 Source: Developed by Drs. Ruddy Snow, Matilde Hodgson, Lex Gonsales and colleagues, with an educational frank from [employer]. KEYONNA-7 Assessment Billing KEYONNA-7 Assessment Tool: KEYONNA-7 Assessment 21269 Review of Systems Const All systems reviewed & are unremarkable except as noted in HPI and below Card Denies chest pain at rest, Denies chest pain with activity, Denies edema, Denies irregular heart rhythm, Denies claudication, Denies dyspnea, Denies dyspnea on exertion, Denies orthopnea, Denies paroxysmal nocturnal dyspnea and Denies slow heart rate Resp Denies cough, Denies dyspnea and Denies dyspnea on exertion GI Denies abdominal pain, Denies change in bowel habits, Denies excessive flatus, Denies nausea and Denies vomiting Physical exam (Primary Care) Vital Signs: Last Vital Signs BP 126/80 05/19/24 15:57 BMI result Body Mass Index 31.8 BMI Assessment/Plan discussion: High BMI High, discussed plan: lifestyle, weight reduction, dietary and physical activity Tobacco/Smoking Status: Tobacco use Status Tobacco use date assessed 05/19/24 05/19/24 16:04 Patient Tobacco Use Status Never used Tobacco 05/19/24 16:15 e-Cigarette/Vaping Use Never Used 05/19/24 16:15 PHQ-9: PHQ-9 Score PHQ-9: Total score 0 05/19/24 16:34 Depression Screening Interpretation: Negative Thrive Assessment: Date of Thrive Assessment Date Thrive assessed 05/19/24 05/19/24 16:04 Currently or been in a relationship where the following occur: No concerns reported HENMT Head: Yes normal to inspection, Yes normocephalic and Yes atraumatic Ears: external ears normal Eyes General: appearance normal, both eyes and all related structures Eyelids: Yes eyelids normal Conjunctivae: conjunctivae normal Neck Neck: Yes normal visual inspection and Yes supple Resp Effort & Inspection: normal respiratory effort Auscultation: clear to auscultation bilaterally Cardio Jugular venous distension: no JVD Rate: regular rate Rhythm: regular rhythm Heart sounds: S1 normal heart sound present and S2 normal heart sound present GI Inspection: Yes normal to inspection Palpation (GI): Soft to palpation and nontender Auscultation: normal bowel sounds Skin General skin exam: no rashes or lesions noted Neuro General: no focal motor deficits Extrem General: Yes full ROM Psych Appearance: grossly normal Immunizations Boostrix Tdap 2.5 Lf unit-8 mcg-5 Lf/0.5 mL intramuscular syringe Performing Provider: Eloisa Patel MD [facility] Administered by: aLila Plunkett LPN on 05/19/24 16:33 Dose Route Admin Location Dispensed Lot Number Expiration Date [facility] Vending Stand Supervisor 0.5 mL IM Left Deltoid 0.5 mL [id number] 08/15/26 [id number] VIS Given Date VIS Provided VIS Publication Date 05/19/24 Single Vaccine 20 Eligibility Eligibility Date Funding Source Not [facility] Eligible 05/19/24 Private Coding Level of Care Code Est Pt Level 3 (72214) Est Pt Prev Care 40-64y(50150) Diagnoses Physical exam Z00.00 Macrocytic anemia D53.9 Additional Codes KEYONNA-7 Assessment Billing - KEYONNA-7 Assessment Tool: KEYONNA-7 Assessment 61384 ([id number]) PHQ-9 - 70612 - PHQ-9 Billing: Yes ([id number]) Time Spent (min) 32 Assessment & Plan Assessment & Plan (1) Physical exam: Code(s): Z00.00 - Encounter for general adult medical examination without abnormal findings Category: Medical (2) Macrocytic anemia: Code(s): D53.9 - Nutritional anemia, unspecified Category: Medical Plan The patient will have her potential vitamin deficiency evaluated alongside comprehensive blood work to assess her hematologic, metabolic, renal, and hepatic status. We will monitor familial conditions like hypertension and controlled diabetes. Due to the patient?s regular exercise and non-smoking status, her health maintenance is on track, with recommendations to continue regular activity and dietary management. The Tdap vaccine is to be administered today to update her immunization schedule. Follow-up with her OB is planned to further evaluate reproductive health and contraceptive options. Patient was informed and verbally consented to the use of an ambient scribe for clinic note documentation during this visit. I discussed with the patient the possibility of vitamin B12 deficiency given her elevated MCV result, and we will initiate testing to confirm this. We agreed that she would benefit from baseline fasting blood work, including a comprehensive panel to evaluate her metabolic and hematologic status. We addressed her family history related to hypertension and diabetes, emphasizing the importance of regular monitoring. For her gynecological concerns, she expressed a desire for an IUD despite recent menstrual irregularities. I reviewed her recent ultrasound results, which were normal, and suggested following up as necessary with her OB. The importance of updating her Tdap vaccination was also discussed, and the patient agreed to receive it. Orders: Orders IRON PROFILE Today D64.9 - Anemia, unspecified Vitamin B12 and Folate Today E53.8 - Deficiency of other specified B group vitamins Lipid Panel Today Z00.00 - Encounter for general adult medical examination without abnormal findings Complete Blood Count Auto Diff Today D64.9 - Anemia, unspecified Comprehensive [place]. Panel Fast Today Z00.00 - Encounter for general adult medical examination without abnormal findings TDaP Immunization Today Z23 - Encounter for immunization Patient Instructions: - Undergo fasting blood work to check cholesterol, glucose, kidney and liver function, hemoglobin, iron, and vitamin B12 levels. - Keep family history in mind and schedule regular health check-ups for blood pressure and glucose monitoring. - Continue regular physical activity at the gym. - Receive the Tdap vaccine today. 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 - Return for any new health concerns or significant changes in symptoms.
[2024-05-19 15:57] VITALS: BP 126/80; BMI 31.8
== END 2024-05-19 16:35 | disposition home or self-care (01) ==
PROVIDERS: PCP Internal Medicine; Visit Provider Internal Medicine
DX: Z00.00 Encounter for general adult medical examination without abnormal findings (principal); D53.9 Nutritional anemia, unspecified; Z23 Encounter for immunization

== ENCOUNTER → 2024-05-19 15:48 | Outpatient (BNVA) | payer OTHER, SELFPAY | PROVIDERS: PCP Internal Medicine; Visit Provider Internal Medicine | DX: Z00.00 Encounter for general adult medical examination without abnormal findings (principal); Z23 Encounter for immunization; D53.9 Nutritional anemia, unspecified | CPT/HCPCS: 90471; 90715; 96127 ==

== ENCOUNTER 2024-05-25 13:06 | Outpatient (AMB) | payer OTHER, SELFPAY ==
--- NOTE | 2024-05-25 13:19 | A.OFFVIS_ITS ---
Intake Visit Reasons: EMB Event Planning Manager: Event Planning Manager Present (Nancie ) Accompanied by: Self / Same As Patient Allergies naproxen Allergy (Severe, Verified 05/25/24 13:19) Hives HPI Comments Details: Presenting for EMB [facility] Surgical History No pertinent past surgical history Family History Mother Diabetes Father HTN (hypertension) Maternal Grandmother Diabetes Social History (Updated 05/19/24 @ 16:15 by Eloisa Patel MD) Household Members: Children Household Members Other:: Fiance Housing: Apartment Alcohol intake: current Alcohol intake frequency: a few times a month Alcohol type: wine Patient Tobacco Use Status: Never used Tobacco e-Cigarette/Vaping Use: Never Used Second Hand Smoke Exposure: No service: No Current occupational status: 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 occupational exposures/hazards: No Sexual orientation: Straight/Heterosexual Gender identity: Female Cognitive needs: No Hearing needs: No Vision needs: No Review of Systems Const All systems reviewed & are unremarkable except as noted in HPI and below Reports as per HPI and Reports no additional complaints GI Reports no additional complaints Reports no additional complaints Office Procedures Endometrial Biopsy Details: The patient was counseled regarding the indication and benefits of endometrial sampling to rule out endometrial pathology including not limited to endometrial hyperplasia or endometrial cancer and others; The alternatives (Either do nothing vs. hysteroscopy D&C) & the risks were discussed with the patient including but not limited: pain, uterine perforation, bleeding, infection, possible injury to bladder, bowel, ureter, possible need for blood transfusion with all its possible risks. The patient verbalized understanding all questions answered and signed consent. Urine test done in the office was negative The patient was placed into the dorsal lithotomy position; a speculum was inserted in the vagina. Using aseptic technique for the procedure, the cervix was cleansed with Betadine. The anterior lip of the cervix was grasped with a single tooth tenaculum. The uterus was sounded to 7 cm with a 4 mm Pipelle was used. Tissues samples were obtained and placed in formalin, in a patient labeled container and sent to the pathology department. At the end of the procedure, there was minimal bleeding noted The patient tolerated the procedure well and was discharged in good condition with the following instructions: Nothing in the vagina until the bleeding stops. No sex until the bleeding stops, to call if any of the following occurs: fever (>100.4), flu-like symptoms, abdominal pain, heavy bleeding, four smelling vaginal discharge. The patient was instructed to schedule a Follow up appointment in 2 weeks to discuss pathology results of the biopsy and treatment options. This note was generated with a voice recognition program. Some errors may have been overlooked during the review of this note. Sometimes these errors may affect the content or meaning of a given sentence. [id number] Biopsy Assessment & Plan Assessment & Plan (1) Abnormal uterine bleeding: Comment: Anemia Code(s): N93.9 - Abnormal uterine and vaginal bleeding, unspecified Category: Medical Plan: EMB done, see procedure note Orders: Orders AMB Endometrial Biopsy Today N93.9 - Abnormal uterine and vaginal bleeding, unspecified Coding Level of Care Code Procedure Only Diagnoses Abnormal uterine bleeding N93.9 CPT Codes Endometrial Biopsy - CPT: 17235-Dfvenubrdmn Biopsy ([id number])
== END 2024-05-25 13:33 | disposition home or self-care (01) ==
LOC: HO.HWS 13:07
PROVIDERS: PCP Internal Medicine; Visit Provider Obstetrics & Gynecology
DX: N93.9 Abnormal uterine and vaginal bleeding, unspecified (principal); Z32.02 Encounter for pregnancy test, result negative
CPT/HCPCS: 58100

== ENCOUNTER 2024-05-25 13:06 | Outpatient (REF) | payer OTHER, SELFPAY ==
[2024-05-25 14:11] LABS: MANUAL DIFF FLAG NO
[2024-05-25 14:30] LABS: Basophils Percent Auto 0.6 % (0-2); Eosinophils Absolute Auto 0.1 X10*3/uL (0.0-0.4); Eosinophils Percent Auto 3.3 % (0-4); Hematocrit 23.5 % (37.0-47.0); Hemoglobin 8.6 g/dl (12.0-16.0); Imm Gran Abs Auto 0.01 X10*3/uL (0.00-0.03); Imm Gran Pct Auto 0.3 % (0.0-0.4); Lymphocytes Absolute Auto 1.1 X10*3/uL (1.2-4.9); Lymphocytes Percent Auto 32.6 % (20-40); Mean Corpuscular HGB Conc 36.6 g/dl (31.0-35.0); Mean Corpuscular Hemoglobin 39.8 pg (27.0-33.0); Mean Corpuscular Volume 108.8 fL (80.0-98.0); Mean Platelet Volume 10.7 fL (9.4-12.3); Monocytes Absolute Auto 0.4 X10*3/uL (0.1-1.2); Monocytes Percent Auto 10.4 % (2-11); NRBC Pct Auto 1.8 /100WBC (0.0-0.2); Neutrophils Absolute Auto 1.8 x10*3/uL (2.0-8.3); Neutrophils Percent Auto 52.8 % (45-73); Platelet Count 164 X10*3/uL (160-400); Red Blood Count 2.16 X10*6/uL (4.20-5.50); White Blood Count 3.4 X10*3/uL (4.8-10.8)
[2024-05-25 15:16] LABS: Alanine Aminotransferase 17 U/L (0-31); Alkaline Phosphatase 47 U/L (39-117); Anion Gap 12 (12-20); Aspartate Amino Transferase 59 U/L (5-31); Bilirubin Total 0.8 mg/dL (0.0-1.0); Blood Urea Nitrogen 7 mg/dL (9-16); Calcium 8.8 mg/dL (8.4-10.2); Carbon Dioxide 22 mmol/L (22-29); Chloride 107 mmol/L (96-108); Cholesterol 156 mg/dL (<200); Estimated Glomerular Filt Rate > 60; Glucose Fasting 102 mg/dL (60-99); HDL Cholesterol 83 mg/dL (>40); Iron 277 mcg/dL (30-160); LDL Cholesterol Calculated 18 mg/dL (<100); Percent Iron Saturation 92 % (15-50); Potassium 3.5 mmol/L (3.3-5.1); Sodium 137 mmol/L (135-145); Total Iron Binding Capacity 302 mcg/dL (228-428); Total Protein 7.2 g/dL (6.5-8.0); Triglycerides 277 mg/dL (<150); Unsaturated Iron Binding < 25 ug/dL
[2024-05-25 15:45] LABS: Folate 3.2 ng/mL (> or = 4.0); Vitamin B12 < 148 pg/mL (200-900)
== END 2024-05-25 13:07 | disposition home or self-care (01) ==
LOC: HO.LAB 13:06
PROVIDERS: PCP Internal Medicine; Visit Provider Internal Medicine
DX: Z00.00 Encounter for general adult medical examination without abnormal findings (principal); N93.9 Abnormal uterine and vaginal bleeding, unspecified; D64.9 Anemia, unspecified; E53.8 Deficiency of other specified B group vitamins; Z13.6 Encounter for screening for cardiovascular disorders
CPT/HCPCS: 36415; 58100; 80053; 80061; 81025; 82607; 82746; 83540; 85025; 88305

== ENCOUNTER → 2024-06-17 13:08 | Outpatient (BNV) | payer OTHER, SELFPAY | PROVIDERS: PCP Internal Medicine; Referring Provider Internal Medicine; Visit Provider Internal Medicine | DX: D53.9 Nutritional anemia, unspecified (principal) | CPT/HCPCS: 99204 ==

== ENCOUNTER 2024-06-23 13:45 | Outpatient (AMB) | payer OTHER, SELFPAY ==
--- NOTE | 2024-06-23 13:57 | A.OFFVIS_ITS ---
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 The following workup was done.: H&H= 7.8/21.1 on 06/17/2024 TSH, hCG, GC and chlamydia were negative. Endometrial biopsy pathology showed the following: 'Benign disordered proliferative endometrium with focal stromal collapse, and benign endocervical glandular and squamous epithelium; no atypia or carcinoma. Co testing was done in 10/24 was negative. Mammogram was done in 11/25 was BI-RADS 1 Pelvic ultrasound showed the following: Transabdominal scanning performed for overall anatomy. Transvaginal scanning performed for additional detail. LMP: 03/01/2024 Anteverted uterus, normal size and echotexture, measuring 8.7 x 4.5 x 5.1 cm. Posterior fundal intramural fibroid measuring 1.3 x 0.8 x 1.0 cm. Well defined endometrium, measuring 3.0 mm in thickness. The right ovary measures, 2.5 x 1.4 x 2.5 cm. Normal sonographic appearance right ovary. Normal color Doppler right ovary. The left ovary measures, 2.3 x 1.7 x 1.7 cm. Normal sonographic appearance left ovary. Normal color Doppler left ovary. Incidental simple paraovarian cyst on the right measuring 1.0 x 1.3 x 1.1 cm. 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 occupational exposures/hazards: No Sexual orientation: Straight/Heterosexual Gender identity: Female Cognitive needs: No Hearing needs: No Vision needs: No Review of Systems Const All systems reviewed & are unremarkable except as noted in HPI and below Reports as per HPI and Reports no additional complaints GI Reports no additional complaints Reports no additional complaints Assessment & Plan Assessment & Plan (1) Abnormal uterine bleeding: Comment: Anemia Code(s): N93.9 - Abnormal uterine and vaginal bleeding, unspecified Category: Medical Plan: The patient was sent to emergency room for 2 units of blood transfusion since H&H 7.. Emergency provider , MEHUL Streeter informed. Discussed with the patient the results of the work up done and options of treatment including Lysteda, control pills, Mirena IUD, endometrial ablation and hysterectomy. All pros, cons, risks and benefits if each option was discussed with the patient and the patient decided to go ahead with Mirena IUD so a more detailed discussion about it was conducted including mechanism of action, risks (uterine perforation, infection, injury to bladder, bowel, displacement, and others) benefits (hypo menorrhea, amenorrhea, ...). The patient was instructed to come back for Mirena IUD insertion in 1-2 days. 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 Discussed with the patient the options of treatment including expectant management versus hysterectomy; the pros and cons, risks benefits of each approach were discussed with the patient including the fact that in cases of myosarcoma, surgical treatment can lead to early diagnosis and positively affects the prognosis; after further discussion, the patient decided to proceed with expectant management. Will repeat pelvic ultrasound periodically. Instructions given to patient to call in case any of the following occurs: pressure symptoms, abnormal uterine bleeding, pelvic pain; and to schedule a six-months pelvic ultrasound (order placed) and a follow-up appointment . All questions answered, the patient verbalized understanding and agreed with the plan . Orders: Orders US pelvic and transvaginal 6 Months D25.9 - Leiomyoma of uterus, unspecified Coding Level of Care Code Est Pt Level 3 (98072) Diagnoses Abnormal uterine bleeding N93.9 Uterine myoma D25.9
[2024-06-23 13:58] VITALS: BMI 33.3
--- OUTSIDE RECORDS SUMMARY | 2024-06-23 16:23 | XMS_ITS | Data Portability ---
Author Organization [facility] UROLOGY Address [address] [facility] [address] [place] [address] Assessment No assessment recorded. Plan of Treatment [...] 019 [email or web address] Ava CARVER, [address], [place], [address], 9 11:23:51 physical therapy neck referral 2018 019 [email or web address] [facility], [address], [place], [address], 9 15:20:27 Procedures None recorded. Surgeries None recorded. Imaging electrocard iogram 2019 020 [email or web address] In-House Order For Katelyn Provider, For Internal Use Only, [id number] 0 11:24:02 XR, cervical spine 2018 019 [email or web address] [facility] [address], [place], [address], 9 08:35:40 XR, thoracic spine 2018 019 LANG [facility] [address], [address], [place], [address], 9 10:28:31 Medication Orders valacyclovi r 500 mg tablet 2018 019 [email or web address] Not available 9 13:27:39 prednisone 10 mg tablet 2018 019 [email or web address] Not available 9 13:27:36 amoxicillin 875 mg tablet 2017 018 [email or web address] Not available 9 09:19:13 Patient TargetsNo targets recorded. Patient Instructions Encounter Date Encounter Id Patient Instructions Last Modified By Organization Details Last Modified Time 05/07/2018 [id number] genital herpes: care instructions smaskey Not available 05/07/2018 09:42:33 healthy upper back: exercises smaskey Not available 05/07/2018 09:42:33 Eating Right For A Healthy Weight smaskey Not available 05/07/2018 11:47:15 06/12/2018 [id number] heart murmur: care instructions smaskey Not available 06/12/2018 14:02:18 seasonal allergies: care instructions smaskey Not available 06/12/2018 13:58:25 10/21/2019 [id number] high cholesterol : care instructions smaskey Not available 10/21/2019 10:47:33 Eating Right For A Healthy Weight smaskey Not available 10/21/2019 12:35:26 Reason for Referral Referring Physician: [facility], Encounter Date: 05/07/2018 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 Referring Physician: Merrick Maciel [facility] Medicine, Encounter Date: 06/12/2018 Results Created Date Observation Date Name Description Value Unit Range Abnormal Flag Note LastModifiedBy Organization Detail LastModifiedTime 10/21/19 20 10/21/2019 elect arnoldo luigigr am EKG Result NSR, NO ST change s Not Available In-House Order For Katelyn Provider For Internal Use Only, [id number] 10/21/2019 11:22:36 09/03/1909/02/2018 CBC w/ auto diff WBC 3.9 10^3_ cells /uL 4.8-11 .2 low Not Available [facility] [address] , [place], [address], 09/02/2018 13:29:16 09/03/1909/02/2018 CBC w/ auto diff RBC 4.1 10^6_ cells /uL 3.6-5. 4 Not Available [facility] [address] , [place], [address], 09/02/2018 13:29:16 09/03/1909/02/2018 CBC w/ auto diff HGB 13.8 g/dL 12.0-1 5.8 Not Available [facility] [address], [place], [address], 09/02/2018 13:29:16 09/03/1909/02/2018 CBC w/ auto diff HCT 39.8 % 36.0-4 8.0 Not Available [facility] [address], [place], [address], 09/02/2018 13:29:16 09/03/1909/02/2018 CBC w/ auto diff MCV 98.3 fL 82.0-9 8.0 high Not Available [facility] [address] [facility], [place], [address], 09/02/2018 13:29:16 09/03/19 19 09/02/2018 CBC w/ auto diff MCH 34.1 pg 27.0-3 5.0 Not Available [facility] [address] [facility], [place], [address], 09/02/2018 13:29:16 09/03/19 19 09/02/2018 CBC w/ auto diff MCHC 34.7 % 32.0-3 7.0 Not Available [facility] [address] [facility], [place], [address], 09/02/2018 13:29:16 09/03/19 19 09/02/2018 CBC w/ auto diff RDW-CV 13.5 % 9.0-17 .9 Not Available [facility] [address] [facility], [place], [address], 09/02/2018 13:29:16 09/03/19 19 09/02/2018 CBC w/ auto diff MPV 11.30 fL 7.00-1 4.00 Not Available [facility] [address] [facility], [place], [address], 09/02/2018 13:29:16 09/03/19 19 09/02/2018 CBC w/ auto diff plt 225 10^3_ cells /uL 150-40 0 Not Available [facility] [address] [facility], [place], [address], 09/02/2018 13:29:16 09/03/1909/02/2018 CBC w/ auto diff ne% 60.6 % 40.0-8 5.0 Not Available [facility] [address] [facility], [place], [address], 09/02/2018 13:29:16 09/03/19 19 09/02/2018 CBC w/ auto diff ly% 28.8 % 15.0-4 5.0 Not Available [facility] [address] [facility], [place], [address], 09/02/2018 13:29:16 09/03/19 19 09/02/2018 CBC w/ auto diff MO% 7.7 % 0.0-12 .0 Not Available [facility] [address] [facility], [place], [address], 09/02/2018 13:29:16 09/03/19 19 09/02/2018 CBC w/ auto diff eo% 2.1 % 0.0-7. 0 Not Available [facility] [address] [facility], [place], [address], 09/02/2018 13:29:16 09/03/19 19 09/02/2018 CBC w/ auto diff ba% 0.5 % 0.0-3. 0 Not Available [facility] [address] [place] [address], [place], [address], 09/02/2018 13:29:16 09/03/19 19 09/02/2018 CBC w/ auto diff Ig% 0.3 % 0.0-0. 5 Not Available [facility] [address] [place] [address], [place], [address], 09/02/2018 13:29:16 09/03/19 19 09/02/2018 CBC w/ auto diff ne# 2.4 10^3_ cells /uL 1.2-8. 5 Not Available [facility] [address] [place] [address], [place], [address], 09/02/2018 13:29:16 09/03/19 19 09/02/2018 CBC w/ auto diff ly# 1.1 10^3_ cells /uL 1.0-4. 5 Not Available [facility] [address], [place], [address], 09/02/2018 13:29:16 09/03/1909/02/2018 CBC w/ auto diff MO# 0.3 10^3_ cells /uL 0.0-1. 0 Not Available [facility] [address], [place], [address], 09/02/2018 13:29:16 09/03/1909/02/2018 CBC w/ auto diff eo# 0.1 10^3_ cells /uL 0.0-0. 5 Not Available [facility] [address] , [place], [address], 09/02/2018 13:29:16 09/03/19 19 09/02/2018 CBC w/ auto diff ba# 0.0 10^3_ cells /uL 0.0-0. 2 Not Available [facility] [address] , [place], [address], 09/02/2018 13:29:16 09/03/1909/02/2018 CBC w/ auto diff Ig# 0.0 10^3_ cells /uL Not Available [facility] [address] , [place], [address], 09/02/2018 13:29:16 09/03/1909/02/2018 TSH, serum or plasm a TSH 1.42 IU/L 0.45-5 .33 Not Available [facility] [address] , [place], [address], 09/02/2018 15:05:22 09/03/1909/02/2018 CMP, serum or plasm a gluc. 95 mg/dL 74-118 Not Available [facility] [address] , [place], [address], 09/02/2018 15:20:13 09/03/1909/02/2018 CMP, serum or plasm a BUN. 8 mg/dL 6-25 Not Available [facility], [place], [address], 09/02/2018 15:20:13 09/03/1909/02/2018 CMP, serum or plasm a crea. 0.81 mg/dL 0.50-1 .20 Not Available [facility] [address] [place] [address], [place], [address], 09/02/2018 15:20:13 09/03/1909/02/2018 CMP, serum or plasm a B/C ratio. 10 ratio 7-25 Not Available [facility] [address] [place] [address], [place], [address], 09/02/2018 15:20:13 09/03/1909/02/2018 CMP, serum or plasm a Na. 140 mmol/ L 135-14 5 Not Available [address], [place], [address], 09/02/2018 15:20:13 09/03/1909/02/2018 CMP, serum or plasm a K. 4.3 mmol/ L 3.5-5. 1 Not Available [facility] [address] [place] [address], [place], [address], 09/02/2018 15:20:13 09/03/1909/02/2018 CMP, serum or plasm a cL 104.00 mmol/ L 98.00- 110.00 Not Available [address], [place], [address], 09/02/2018 15:20:13 09/03/1909/02/2018 CMP, serum or plasm a CO2. 26 mmol/ L 22-32 Not Available [place] [address] , [place], [address], 09/02/2018 15:20:13 09/03/1909/02/2018 CMP, serum or plasm a anion gap 10 mmol/ L 3-12 Not Available [facility] [address] [facility], [place], [address], 09/02/2018 15:20:13 09/03/1909/02/2018 CMP, serum or plasm a Ca. 9.7 mg/dL 8.6-10 .3 Not Available [facility], [place], [address], 09/02/2018 15:20:13 09/03/1909/02/2018 CMP, serum or plasm a TP. 7.4 g/dL 6.4-8. 9 Not Available [facility], [place], [address], 09/02/2018 15:20:13 09/03/1909/02/2018 CMP, serum or plasm a alb. 4.5 g/dL 3.5-5. 7 Not Available [facility], [place], [address], 09/02/2018 15:20:13 09/03/1909/02/2018 CMP, serum or plasm a A/G ratio. 1.5 ratio 1.1-1. 8 Not Available [facility], [place], [address], 09/02/2018 15:20:13 09/03/1909/02/2018 CMP, serum or plasm a ALP. 47 IU/L 34-104 Not Available [facility] [address] [facility], [place], [address], 09/02/2018 15:20:13 09/03/1909/02/2018 CMP, serum or plasm a ALT. 16 IU/L 7-52 Not Available [facility] [address] [place] [address], [place], [address], 09/02/2018 15:20:13 09/03/1909/02/2018 CMP, serum or plasm a AST. 24 IU/L 13-39 Not Available [facility] [address] [place] [address], [place], [address], 09/02/2018 15:20:13 09/03/1909/02/2018 CMP, serum or plasm a tbil. 0.7 mg/dL 0.2-1. 2 Not Available [facility] [address] [place] [address], [place], [address], 09/02/2018 15:20:13 09/03/1909/02/2018 CMP, serum or plasm a eGFR >60 mL/mi n/1.7 3_m^2 >60 mL/min /1.73 M^2 IF PATIE NT IS AFRIC AN-AM RAMY N, MULTI PLY eGFR REPOR JES RESUL T by 1.21 Not Available [facility] [address] [place] [address], [place], [address], 09/02/2018 15:20:13 09/03/1909/02/2018 lipid panel , serum chol 174 mg/dL <200 Not Available [facility] [address] [place] [address], [place], [address], 09/02/2018 15:20:24 09/03/1909/02/2018 lipid panel , serum trig. 294 mg/dL <150 high Not Available [facility] [address] [place] [address], [place], [address], 09/02/2018 15:20:24 09/03/1909/02/2018 lipid panel , serum DHDL 74 mg/dL >40 Not Available [facility] [address] , [place], [address], 09/02/2018 15:20:24 09/03/19 19 09/02/2018 lipid panel , serum LDL chol 41 mg/dL (calc .) <100 Not Available [facility] [address] [facility], [place], [address], 09/02/2018 15:20:24 09/03/19 19 09/02/2018 lipid panel , serum chol/ HDL ratio 2.4 ratio 0.0-5. 0 Not Available [facility] [address] [facility], [place], [address], 09/02/2018 15:20:24 09/24/19 19 09/23/2018 pap, IG + HPV mRNA E6/E7 clinical information: SCREEN ING Not Available [facility], [place], [address], 09/25/2018 12:42:04 09/24/19 19 09/23/2018 pap, IG + HPV mRNA E6/E7 LMP: 2018 Not Available [facility], [place], [address], 09/25/2018 12:42:04 09/24/19 19 09/23/2018 pap, IG + HPV mRNA E6/E7 prev. Pap: 2017 Not Available [facility], [place], [address], 09/25/2018 12:42:04 09/24/19 19 09/23/2018 pap, IG + HPV mRNA E6/E7 prev. BX: NONE Not Available [facility], [place], [address], 09/25/2018 12:42:04 09/24/19 19 09/23/2018 pap, IG + HPV mRNA E6/E7 source: Cervix , Endoce rvix Not Available [facility] [address] [place] [address], [place], [address], 09/25/2018 12:42:04 09/24/19 19 09/23/2018 pap, IG + HPV mRNA E6/E7 statement of adequacy: Satisf actory for evalua tion. Endoce rvical /trans format ion zone compon ent presen t. Not Available [facility] [address] [place] [address], [place], [address], 09/25/2018 12:42:04 09/24/19 19 09/23/2018 pap, IG + HPV mRNA E6/E7 interpretati on/result: Negati ve for intrae pithel ial lesion or malign pascale. Not Available [facility] [address] [place] [address], [place], [address], 09/25/2018 12:42:04 09/24/19 19 09/23/2018 pap, IG + HPV mRNA E6/E7 comment: This Pap test has been evalua jes with comput er assist ed techno logy. Not Available [facility] [address] [place] [address], [place], [address], 09/25/2018 12:42:04 09/24/19 19 09/23/2018 pap, IG + HPV mRNA E6/E7 cytotechnolo gist: SEE NOTE GSG, CT( CP) CT scree ryan locat ion: [facility] [address], [place] [address] Not Available [facility] [address] [place] [address], [place], [address], 09/25/2018 12:42:04 09/24/19 19 09/23/2018 pap, IG [...] clini fareed infor matio n. Not Available [facility] [address] , [place], [address], 09/25/2018 12:42:04 09/24/19 19 09/23/2018 pap, IG + HPV mRNA E6/E7 HPV MRNA E6/E7 Not Detect ed not detect ed This test was perfo rmed using the APTIM A HPV Assay ([employer] . This assay detec ts E6/E7 viral messe nger RNA (mRNA ) from 14 high- risk HPV types (16,1 8,31, 33,35 ,39,4 5,51, 52,56 ,58,5 9,66, 68). The camila tical perfo rmanc e kuldip cteri stics of this assay have been deter mined by [facility]. The modif icati ons have not been clear ed or appro tobi by the FDA. This assay has been valid ated pursu ant to the CLIA regul ation s and is used for clini fareed purpo ses. Not Available [facility] [address] , [place], [address], 09/25/2018 12:42:04 05/08/19 19 05/07/2018 XR, cervi fareed spine , 4 or 5 view Page 1 of 1 [facility] [address] [place] [address] [phone] MD Shira Gomez Name: NICOLE AKINS [address] Arita : 1980 [place] [address] Chart No: [id number] Gender : Female Access ion #: [id number] Study Date: Primar y CPT Code: Study Descri ption: 87885 XR CERV SP 4V Histor y: Neck pain. Cervic al spine, five views: Verteb ral alignm ent is normal . There is mild loss of disc height at C4-5. Disc spaces are otherw ise preser tobi. The facets are intact . Obliqu e views show no bony forami nal narrow ing. Prever tebral soft tissue s are normal in calibe r. 05/08/19 10:25 AM PS/ CC: Electr onical ly approv ed by: Yoly Keyes Indica tions/ Chief Compla int: Neck painMa skey ruth Salazarorn [address], [place], [address], 06/12/2018 13:53:07 05/08/1905/07/2018 XR, thora cic spine Page 1 of 1 [facility] [address] [place] [address] [phone] MD Shira Gomez t Name: NICOLE AKINS [address] : 1980 [place] [address] Chart No: [id number] Gender : Female Access ion #: [id number] Study Date: Primar y CPT Code: Study Descri ption: 99856 XR TSPINE 2V Histor y: Thorac ic back pain. Thorac ic spine, two views: There is slight leftwa rd curvat ure of the mid to lower thorac ic spine. Alignm ent is otherw ise normal . There are no compre ssion deform ities. No signif icant disc space narrow ing. 05/08/19 10:26 AM PS/ CC: Electr onical ly approv ed by: Yoly Keyes Indica tions/ Chief Compla int: Thorac ic back painMa skey ruth Salazarorn [address], [place], [address], 06/12/2018 13:53:07 10/22/19 20 10/21/2019 elect arnoldo singh am No observ ation record ed. [email or web address] In-House Order For Amado Provider For Internal Use Only, [id number] 10/23/2019 15:11:40 Result Notes None recorded. Problems Name Problem SNOMED Code Status Onset Date Resolution Date Notes Provider Name and Address Organization Details Recorded Time No current problems or disability 989625032 Active Kristal morales [facility] 7 11:26:41 Hyperlipidemia 12513878 Active 2019 Merrick Maciel MD [address] [place] [address], [phone], [facility] 0 11:22:25 Problem Notes None recorded. Procedures Surgical History Date Name Laterality Status Provider Name and Address Organization Details Recorded Time 7 no previous surgery completed Kristal Albrecht [facility] 02/07/2017 10:22:40 Imaging Results Imaging Date Name Status LastModified by Organization Details LastModified Time 05/07/2018 XR, cervical spine, 4 or 5 view completed ruth Hill [address] [facility], [place], [address], 06/12/2018 13:53:07 05/07/2018 XR, thoracic spine completed ruth Lott rn [address] [facility], [place], [address], 06/12/2018 13:53:07 10/21/2019 electrocardiogram completed [email or web address] In-Hous e Order For Katelyn Provider For Internal Use Only, [id number] 10/23/2019 15:11:40 Procedure Notes None recorded. Medical Equipment None Reported. Allergies Allergen ID Allergen Name Allergen Category Reaction Reaction Severity Criticality Documentation Date Start Date Code Code System Note Provider Name and Address Organization Details Recorded Time 246553 naproxen medicatio n hives Not available Not available 02/07/2017 7258 RxNorm Kristal morales [facility] 7 10:32:06 Medications Name Sig Start [...] Updated DateTime 8 156.21 cm 29.7 kg/m2 25981.7 8 g 80 /min 98 % 98 % 16 /min 98.8 [degF] 116 mm[Hg] 72 mm[Hg] Scarlett Elton [facility] 8 17:36:32 Date Recorded Body height Body mass index (BMI) Body weight Heart rate Oxygen saturation Oxygen saturation in Arterial blood by Pulse oximetry Systolic blood pressure Diastolic blood pressure Provider Name and Address Organization Details Last Updated DateTime 9 156.21 cm 29.2 kg/m2 55870 g 80 /min 99 % 99 % 122 mm[Hg] 68 mm[Hg] Kristal Albrecht [facility] 9 09:20:40 Date Recorded Body height Body mass index (BMI) Body weight Heart rate Systolic blood pressure Diastolic blood pressure Provider Name and Address Organization Details Last Updated DateTime 9 156.21 cm 29.6 kg/m2 58947.1 9 g 72 /min 120 mm[Hg] 84 mm[Hg] Chele Thrasher [facility] 9 13:32:43 Date Recorded Body height Body mass index (BMI) Body weight Systolic blood pressure Diastolic blood pressure Provider Name and Address Organization Details Last Updated DateTime 09/23/2018 156.21 cm 27.9 kg/m2 96186.86 g 97 mm[Hg] 78 mm[Hg] Marsha Palma [facility] 9 10:44:54 Date Recorded Body height Body mass index (BMI) Body weight Heart rate Oxygen saturation Oxygen saturation in Arterial blood by Pulse oximetry Systolic blood pressure Diastolic blood pressure Provider Name and Address Organization Details Last Updated DateTime 0 156.21 cm 33.8 kg/m2 00403.8 1 g 79 /min 98 % 98 % 112 mm[Hg] 74 mm[Hg] Kristal Albrecht [facility] 0 10:33:34 Social History Question Answer Notes LastModified by Organizat ion Details LastModified Time Tobacco Smoking Status Never Smoker [facility] 11/29/2016 11:29:31 What Is Your Level Of [...] not available 10/21/2019 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 Yes Information not available 02/07/2017 Live Alone Or With Others? With Others Information not available 09/23/2018 CO Detectors In [...] MDCK, quadrivalent, PF 02/07/2017 completed Not Available [facility] 0 02:20:54 Past Encounters Encounter ID Performer Location Encounter Start Date Encounter Closed Date Diagnosis/Indication Diagnosis SNOMED-CT Code Diagnosis ICD10 Code Diagnosis Note [id number] MD BENNY Gomez [address] [place] [address] PRACTICE [address] [place] [address] 11/29/2016 10:58:29 11/29/2016 12:16:31 Hand pain 31935945 M79.642 Patient is reluctant to do X ray . Patient pain is most likely sprain Motrin PRN Exercise-i nduced asthma 26204333 J45.990 COnt same RX Heart murmur 42784514 R0 1.1 Stable Asymtomati c nick review the Echo [id number] MD BENNY [facility] [address] [place] [address] 02/07/2017 09:55:40 02/07/2017 14:26:00 Influenza vaccine needed 2395404755 106 Z23 Adult heal th examination 005320526 Z00.00 Z00.01 Heart murmur 42647335 R0 1.1 Stable Asymtomati c nick review the Echo Hand pain 46775431 M79.6 42 X ray done which was normal if persistent then t/c hand Motrin PRN [id number] MD [facility] [address] [place] [address] 07/08/2017 12:23:14 07/08/2017 14:46:34 Upper abdominal pain 44827959 R10.10 [id number] MD BENNY Ramirez [facility] [address] [place] [address] 01/28/2018 17:04:28 01/28/2018 17:48:47 Upper respiratory infection 68447825 J06.9 Sinusitis 33909021 J32.9 [id number] Merrick Maciel MD [place] [address] [address] 05/07/2018 09:06:56 05/07/2018 09:56:28 Body mass index 25-29 - overweight 631461743 Z68.29 Neck pain 73132917 M54.2 Patietn neck pain is most likely Sprain or Spondylosi swill do work upwill give short course of Predwill start PT Thoracic back pain 58616 8004 M54.6 will do work up Genital he rpes simplex 13109238 A60.9 Due to h/o Genital herpes in the past will rx Valtrex PRN during outbreaks [id number] MD BENNY Gomez [facility] [address] [place] [address] 06/12/2018 13:23:47 06/12/2018 14:11:28 Adult health examination 439794811 Z00.00 Z00.01 Screening for malignant neoplasm of cervix 103863099 Z12.4 Seasonal a llergic rhinitis 816097075 J30.2 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 Neck pain 03494467 M54.2 resolved Heart murmur 48655513 R0 1.1 Stable Asymtomati c will do Echo 2019 [id number] Karina Celaya DO [place] [address] [employer] [facility] [address] [place] [address] 09/23/2018 10:32:47 09/23/2018 12:00:25 Gynecologic examination 95806595 Z01.419 1 yr annual Screening for malignant neoplasm of cervix 821887363 Z12.4 pap fu 1 yr Body mass index 25-29 - overweight 455537682 Z68.27 wt loss Depression screening 171 438915 Z13.31 Depression screening reviewed with pt [id number] Merrick Maciel MD [place] [address] [facility] [address] [place] [address] 10/21/2019 10:02:25 10/21/2019 11:24:01 Adult health examination 300186700 Z00.00 Hyperlipidemia 04690948 E78.5 Stablelow fat diet and exercise discussed Discussed the risk of high cholestero l which includes heart attack ,stroke and even Body mass index 30+ - obesity 450003804 Z68.33 Diet and exercise discussedI Deal body weight disucssed and goal is to 10% of weight loss in 4-6 monthsLow carb, low fat and food rich in [place] 3 fatty acid discussed . Portion control [...] Davis Member ID Guarantor Name 05/07/2018 1 [facility] (EPO) [id number] Nicole Akins [id number] Nicole Akins 06/12/2018 1 [facility] (POS) [id number] Nicole Akins [id number] Nicole Akins 09/23/2018 1 [facility] (POS) [id number] Nicole Akins [id number] Nicole Akins 10/21/2019 1 [facility] (POS) [id number] Nicole Antonio [id number] Nicole Antonio Notes Date Note Type Note Provider Name [...] smoker []smoker ___ ppd Isac Zhu MD [address] [place] [address], [phone], [facility] 01/28/2018 17:48:38 05/07/2018 text/html [...] Daily Living)improve with medication Merrick Maciel MD [address] [place] [address], [phone], [facility] 05/07/2018 12:38:17 06/12/2018 text/html Annual Wellness Visit Thiokol Operator 18-64 yearsReported bypatient.Diet and Nutrition:healthy diet Physical [...] in the home Merrick Maciel MD [address] [place], [phone], [facility] 06/12/2018 17:09:50 09/23/2018 text/html 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 She has no complaints. Menses are regular. She denies any vaginal discharge, vulvar itching, abnormal bleeding or urinary symptoms. Her method of control is Mirena IUD. She denies STD concerns . ok iwth mirena light menses monthly no problems Karina Celaya DO [address] [place], [phone], [facility] 09/23/2018 13:13:26 10/21/2019 text/html Patient is here for PE. No complaints today Merrick Maciel MD [address] [place], [phone], [facility] 10/21/2019 12:35:38 OBGyn Episode No OBEpisode recorded.
== END 2024-06-23 14:18 | disposition home or self-care (01) ==
LOC: HO.HWS 13:45
PROVIDERS: PCP Internal Medicine; Visit Provider Obstetrics & Gynecology
DX: N93.9 Abnormal uterine and vaginal bleeding, unspecified (principal); D25.9 Leiomyoma of uterus, unspecified
CPT/HCPCS: 99213